=== PATIENT | male | born 1980 | race Caucasian/White ===

== ENCOUNTER 2016-12-12 16:19 | Emergency (ER) | payer SELFPAY ==
[2016-12-12 16:36] VITALS: RESP 16
[2016-12-12] MEDS ORDERED: BACITRACIN 0.9 GM PACKET OINT TOPICAL ONE (16:45)
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
== END 2016-12-12 16:58 | disposition home or self-care (01) ==
LOC: ER 16:19
DX: L55.1 Sunburn of second degree (principal)
CPT/HCPCS: 99282; 99283

== ENCOUNTER 2016-12-20 12:39 | Emergency (ER) | payer SELFPAY ==
--- NOTE | 2016-12-20 12:52 | PDOC ---
Lower Extremity Problem HPI - General Chief Complaint: Lower Extremity Problem/Injury Stated Complaint: RIGHT KNEE PAIN Date Seen by Provider: 12/20/16 Time Seen by Provider: 12:52 Source: POSITIVE: Patient Exam Limitations: POSITIVE: No limitations - History of Present Illness Initial Comments: Mr. Martines is a 36-year-old man coming today with pain to his right knee. He states it started hurting yesterday. He denies any direct blow to the knee. The pain is located on the inside portion of the knee by the kneecap. There is no swelling there is no redness he still able to ambulate. Staking mometasone for symptoms. There is no swelling to the knee he has no fevers no nausea no vomiting. - Patient Home Medications Home Medications: Home Medications NK [No Home Medications Reported] 12/12/16 - Patient Allergies Allergies/Adverse Reactions: Allergies Allergy/AdvReac Type Severity Reaction Status Date / Time Penicillins Allergy Severe DIFFICULTY Verified 12/20/16 12:49 SWALLOWING Past Medical History - heen HEENT History: Denies History Cardiovascular History: Denies History Respiratory History: Denies History Gastrointestinal History: Denies History Genitourinary History: Denies History Endocrine History: Denies History Musculoskeletal History: Denies History Prosthesis or Implant: No Neurological History: Denies History Blood Disorders: Denies History Psychiatric History: Denies History History of Sexually Transmitted Diseases: No Cancer History: Denies History History of MDRO: No History of Other Communicable Diseases: No Alcohol Use: None Substance Use Type: None Previous Surgical History: No Anesthesia Reactions: No Malignant Hyperthermia: No Significant Family History: No pertinent family hx Past Medical History Reviewed: Reviewed - No Changes ROS - Limitations ROS Limitations: No Limitations Constitution: REPORTS: Denies Symptoms Cardiovascular: REPORTS: Denies Cardiac Symptoms Respiratory: REPORTS: Denies Resp Symptoms Neurological: REPORTS: Denies Neuro Symptoms Gastrointestinal: REPORTS: Denies GI Symptoms Endocrine: REPORTS: Denies Symptoms Musculoskeletal: REPORTS: Joint Pain ENT: REPORTS: Denies Symptoms Skin: REPORTS: Denies Skin Symptoms Lower Ext Problem Exam - General Appearance General Appearance: POSITIVE: Alert, Cooperative, No Acute Distress - Extremities Lower Extremity: POSITIVE: Other (The bilateral knees are completely symmetrical with no edema erythema swelling or excessive warmth. He has very mild palpation to the medial aspect of the right knee there is no laxity to the medial or lateral collateral ligaments range of motion and strength is preserved. the patella is nontender) Vascular: POSITIVE: No Vascular Compromise - Neuro / Psych Neuro/Psych: POSITIVE: Sensation Normal, Motor Normal, Oriented to Person, Oriented to Place, Oriented to Time - Neck / Back / Pelvis Back / Neck: POSITIVE: Normal Inspection - HEENT HEENT: POSITIVE: Head Inspection Nml, Eyes Inspection Nml - Respiratory / CVS Respiratory / CVS: POSITIVE: No Respiratory Distress Peripheral Pulses: Radial (R): 2+, Radial (L): 2+ - Abdomen Abdomen: Soft: (All Quadrants), Denies Tenderness: (All Quadrants) Images - Uploaded Photos Uploaded Photos: Lower Ext Problem Progress - Patient's Progress MDM / ED Course: Mr. Martines is a 36-year-old man coming today with some mild discomfort to his right knee. On exam there is actually no deformity has normal range of motion and strength and is ambulatory. He is not taking any anti-inflammatories or any serving measured at home, so we recommended [id number] ibuprofen or Tylenol as well as ice packs elevation and gentle range of motion exercises. He verbalized understanding recommendations Patient Care Time - Estimated PCT Patient Care Time (In Minutes): 10 Vital Signs - VS Reviewed Vital Signs Reviewed: Yes Discharge Clinical Impression: Knee pain Discharge Disposition: Discharged to Home Condition: Good Additional Instructions: Use ice packs. Take [id number] ibuprofen or tylenol for your discomfort. Follow Up With: NONE,NONE [Primary Care Provider] -
[2016-12-20 13:28] VITALS: RESP 16; TEMP 97
== END 2016-12-20 12:57 | disposition home or self-care (01) ==
LOC: ER 12:39
DX: M25.561 Pain in right knee (principal)
CPT/HCPCS: 99282

== ENCOUNTER 2017-01-02 22:46 | Emergency (ER) | payer SELFPAY ==
[2017-01-02 22:59] VITALS: RESP 18; TEMP 98.7
[2017-01-02] MEDS ORDERED: HYDROcodone-APAP 5 MG -325 MG TABLET PO SCH (23:00)
[2017-01-02] MEDS ORDERED: CLINDAMYCIN 150 MG CAPSULE PO SCH (23:00)
--- NOTE | 2017-01-02 23:45 | PDOC ---
Sore Throat/Dental Pain HPI - General Chief Complaint: Nasal/Mouth Problem /Injury Stated Complaint: toothache Date Seen by Provider: 01/02/17 Time Seen by Provider: 23:00 Source: POSITIVE: Patient Exam Limitations: POSITIVE: No limitations Nurse's Notes Reviewed & Considered: Yes - History of Present Illness Initial Comments: The patient is a 36-year-old male who presents to the emergency department with right upper gumline pain. He has a tooth that is broken at the gum line in the right upper region. He states over the past 24 hours he's developed increased pain and swelling to this region. He has some associated chills however denies fever. He has not had any difficulty swallowing. He has been taking ibuprofen without any significant pain relief over the past 24 hours. - Patient Home Medications Home Medications: Home Medications Clindamycin HCl 300 mg PO TID #21 capsule 01/02/17 Hydrocodone/Acetaminophen [Es[place] 5-325 Tablet] 1 each PO Q6H PRN #10 tablet - Patient Allergies Allergies/Adverse Reactions: Allergies Allergy/AdvReac Type Severity Reaction Status Date / Time Penicillins Allergy Severe DIFFICULTY Verified 01/02/17 22:51 SWALLOWING Past Medical History - heen HEENT History: Denies History Cardiovascular History: Denies History Respiratory History: Denies History Gastrointestinal History: Denies History Genitourinary History: Denies History Endocrine History: Denies History Musculoskeletal History: Denies History Prosthesis or Implant: No Neurological History: Migraines Blood Disorders: Denies History Psychiatric History: Denies History History of Sexually Transmitted Diseases: No Cancer History: Denies History In Past Year Been Physically Harmed or Verbally Threatened: No History of MDRO: No History of Other Communicable Diseases: No Tobacco Use: Current Every Day Smoker Alcohol Use: None Substance Use Type: None Previous Surgical History: Yes Type / Date of Surgery: bilateral ear tubes Anesthesia Reactions: No Malignant Hyperthermia: No Significant Family History: No pertinent family hx Past Medical History Reviewed: Reviewed - No Changes ROS - Limitations ROS Limitations: No Limitations Constitution: REPORTS: Denies Symptoms Cardiovascular: REPORTS: Denies Cardiac Symptoms Respiratory: REPORTS: Denies Resp Symptoms Neurological: REPORTS: Denies Neuro Symptoms Gastrointestinal: REPORTS: Denies GI Symptoms Sore Throat/Dental Pain Exam - General Appearance General Appearance: REPORTS: Alert, Cooperative, No Acute Distress - HEENT Head / Face: POSITIVE: No Facial Swelling Eyes: POSITIVE: Inspection Normal Ears: POSITIVE: Ears Normal Inspection Nose: POSITIVE: Inspection Normal Oropharynx: POSITIVE: Pharynx Inspect. Nml, Airway Intact, Voice Normal, Moist Mucous Membranes Neck: POSITIVE: Supple. NEGATIVE: Lymphadenopathy Dental: POSITIVE: Other (He has a molar that is broken off at the gum in the right upper region, there is some surrounding erythema and swelling) - Respiratory Respiratory: REPORTS: No Respiratory Distress, Breath Sounds Normal - Cardiovascular Cardiovascular: REPORTS: Regular Rate and Rhythm, Heart Sounds Normal Sore Throat/Dental Progress - Patient's Progress MDM / ED Course: The patient was started on clindamycin 300 mg 3 times a day for 7 days for treatment of dental infection. In addition he is advised to continue ibuprofen 600 mg every 6 hours as needed for pain. He was also prescribed [place] 5/325 which he can take every 6 hours as needed for severe pain. He is advised return to the emergency room if he develops increased swelling, difficulty swallowing, fever, any worsening or change in symptoms. He is advised follow- up with the dentist as soon as possible. - Consult Counseled: POSITIVE: Patient, RE: DX, RE: Need for F/U Patient Care Time - Estimated PCT Patient Care Time (In Minutes): 10 Vital Signs - Recent Vital Signs Vital Signs: Vital Signs (Last 8 hours) Temp Pulse Resp BP Pulse Ox 01/02/17 22:56 98.7 F 88 18 133/85 98 - VS Reviewed Vital Signs Reviewed: Yes Discharge Clinical Impression: Dental abscess Discharge Disposition: Discharged to Home Condition: Good Prescriptions / Orders: Clindamycin HCl 300 mg PO TID #21 capsule Hydrocodone/Acetaminophen [[place] 5-325 Tablet] 1 each PO Q6H PRN #10 tablet PRN Reason: Pain Patient Instructions Given at Discharge: Dental Abscess (ED) Additional Instructions: Start clindamycin 300 mg 3 times a day for 7 days. Continue ibuprofen 600 mg every 6 hours as needed for pain. You've also been prescribed [place] 5/325 which he can take one every 6 hours as needed for severe pain. Return to the emergency room if increased pain or swelling, fevers or chills, difficulty swallowing, any worsening or change in symptoms. Recommend dental follow-up as soon as possible. Follow Up With: NONE,NONE [Primary Care Provider] -
== END 2017-01-02 23:18 | disposition home or self-care (01) ==
LOC: ER 22:46
DX: K04.7 Periapical abscess without sinus (principal); K08.89 Other specified disorders of teeth and supporting structures
CPT/HCPCS: 99282